=== PATIENT | female | born 1955 | race Caucasian/White ===

== ENCOUNTER → 2017-08-15 12:41 | Outpatient (CLI) | payer OTHER, SELFPAY ==
--- NOTE | 2017-08-15 | DI.RAD.S_ITS ---
PROCEDURE: XR FOOT RT MIN 3V INDICATIONS: RIGHT FOOT PAIN TECHNIQUE: 3 views of the foot were acquired. COMPARISON: [facility], , XR RT FOOT 3V, 03/15/2005, 8:11. FINDINGS: Bones: No fractures or dislocations. No suspicious bony lesions. Small plantar spur os calcis. Minimal marginal spurring first metatarsal head. Soft tissues: No tibiotalar joint effusion. Achilles tendon appears normal. IMPRESSION: Negative for fracture. Source of foot pain not seen. Dictated by: Andrea Mcgowan M.D. on 08/15/2017 at 16:00 Approved by: Andrea Mcgowan M.D. on 08/15/2017 at 16:02
== END ==
PROVIDERS: PCP Family Medicine; Visit Provider Family Medicine
DX: M79.671 Pain in right foot (principal)
CPT/HCPCS: 73630

== ENCOUNTER → 2017-09-26 15:12 | Outpatient (CLI) | payer OTHER, SELFPAY ==
--- NOTE | 2017-09-26 | DI.RAD.S_ITS ---
PROCEDURE: XR CHEST 2V INDICATIONS: COUGH TECHNIQUE: 2 views of the chest were acquired. COMPARISON: None. FINDINGS: Surgical changes and devices: None. Lungs and pleura: No pleural effusions or pneumothorax. Lungs are clear. Mild scattered atelectasis. Mediastinum: Mediastinal contours are normal. Heart size is normal. Bones and chest wall: No suspicious bony abnormalities. Soft tissues appear unremarkable. IMPRESSION: No acute disease. Dictated by: Javier Wang M.D. on 09/26/2017 at 15:45 Approved by: Javier Wang M.D. on 09/26/2017 at 15:46
== END ==
PROVIDERS: PCP Family Medicine; Visit Provider Family Medicine
DX: R05 Cough (principal)
CPT/HCPCS: 71046

== ENCOUNTER → 2018-08-22 11:12 | Outpatient (CLI) | payer OTHER, SELFPAY ==
--- NOTE | 2018-08-22 | DI.RAD.S_ITS ---
PROCEDURE: XR CERVICAL SPINE 2V OR 3V INDICATIONS: NECK PAIN TECHNIQUE: 3 view(s) of the cervical spine were acquired. COMPARISON: None. FINDINGS: Bones: No fractures or dislocations to the T1 level. The lateral masses of C1 appear intact on the odontoid view. No suspicious bony lesions. Note is made of moderately severe C5-6 and C6-7 degenerative disc disease with both anterior and posterior projecting osteophytes to the degree that spinal and foraminal stenosis at those 2 levels may be present. This is slightly greater at the C6-7 level. No anterolisthesis is associated. Soft tissues: No prevertebral soft tissue swelling. IMPRESSION: Minimal degenerative changes to the C5-6 level where moderately severe degenerative disc disease and osteophyte formation is present and this pattern is slightly more prominent at C6-C7. Spinal and foraminal stenosis likely is present at these 2 levels. Dictated by: Manjeet Reed M.D. on 08/22/2018 at 11:52 Approved by: Manjeet Reed M.D. on 08/22/2018 at 11:53
== END ==
PROVIDERS: PCP Family Medicine; Visit Provider Family Medicine
DX: M50.321 Other cervical disc degeneration at C4-C5 level (principal)
CPT/HCPCS: 72040

== ENCOUNTER 2019-03-07 07:11 | Day surgery (SDC) | payer OTHER, SELFPAY ==
[2019-03-07] VITALS (8 sets, daily range): BP systolic 105–130; BP diastolic 58–77; PULSE 68–99; RESP 12–17; TEMP 36.2–36.6; O2SAT 92–98
[2019-03-07] MEDS: SODIUM CHLORIDE 0.9% 1,000 ML 200 ML IV (07:46)
--- NOTE | 2019-03-07 08:14 | PM.HP.1 ---
History of Present Illness History of Present Illness Date Patient Seen: 03/07/19 Time Patient Seen: 08:14 Chief complaint: [id number] Narrative: Patient is here for a screening colonoscopy she has had previous colonoscopy does not remember whether she had polyps she is asymptomatic Patient History Family & Social History Social History: household members spouse Meds Home Medications and Allergies Home Medications Medication Instructions Recorded Confirmed Type ascorbic acid (vitamin C) 1,000 mg PO BID #0 01/09/17 History cholecalciferol (vitamin D3) 400 unit PO #0 01/09/17 History [Vitamin D3] coenzyme Q10 [Co Q-10] 100 mg PO #0 01/09/17 History magnesium oxide 400 mg #0 01/09/17 History atorvastatin [Lipitor] 5 mg PO BEDTIME 03/07/19 03/07/19 History lisinopril 5 mg PO DAILY 03/07/19 03/07/19 History Allergies Allergy/AdvReac Type Severity Reaction Status Date / Time Sulfa (Sulfonamide Allergy Unknown Verified 03/07/19 07:27 Antibiotics) cephalexin AdvReac Unknown Verified 03/07/19 07:27 Review of Systems Review of Systems ROS Unobtainable: All systems reviewed & are unremarkable except as noted in HPI and below Exam Vital Signs (past 8 hours): - 03/07/19 07:38 Temperature 97.6 F Pulse Rate 80 Respiratory Rate 15 Blood Pressure 130/77 Pulse Oximetry 98 Oxygen Delivery Method Room Air Narrative Exam Narrative: Patient is alert and oriented Lungs are clear with no rales or wheezes Heart regular rhythm no murmur Abdomen soft no organomegaly no tenderness Rectal be done at time of colonoscopy Assessment & Plan Assessment & Plan narrative: Patient is asymptomatic and is here for a screening colonoscopy she has had prior colonoscopies understands procedure very well has no unanswered questions.
[2019-03-07] MEDS: fentaNYL 250 MCG/5 ML INJ IV (08:20)
[2019-03-07] MEDS: MIDAZOLAM 5 MG/5 ML VIAL IV (08:21)
--- NOTE | 2019-03-07 08:35 | PM.OP.ENDO ---
Operative Date/Time/Diagnoses Date of procedure: 03/07/19 Time of procedure: 08:35 Pre-op diagnosis: Screening colonoscopy Post-op diagnosis: same Procedure & Clinicians Study performed: Colonoscopy to just beyond the splenic flexure this was normal. The procedure was aborted at that level because of patient discomfort Same procedure as scheduled: No (Partial colonoscopy to just beyond the splenic flexure) Surgeon: Juan Christianson Procedure Notes SCOAP/Timeout: This was done Procedure in detail: The patient was given a total of 5 mg of Versed and 150 micro g of fentanyl. This was given sequentially throughout the procedure. Patient had extreme discomfort even though the colonoscope was very easy to pass through the well-visualized lumen. There were no tumors no polyps no diverticuli. Because of extreme discomfort and patient motion as we traversed the splenic flexure I aborted the procedure. I do not feel it was safe to give further sedation without a well protected airway. Any further attempts at colonoscopy in this patient should be done under general anesthesia. Scope withdrawal time: 10 Sedation minutes: 20 Specimen(s): none sent Complications: none Post-procedure Recommendations: Colonscopy in 5 years Disposition: PACU
== END 2019-03-07 09:46 | disposition home or self-care (01) ==
LOC: ENDO 07:11
PROVIDERS: Surgery; PCP Family Medicine; Visit Provider Specialist
PROC: 0DJD8ZZ Inspection of Lower Intestinal Tract, Via Natural or Artificial Opening Endoscopic (ICD-10-PCS; CPT 45378; principal; 2019-03-07 08:30)
DX: Z12.11 Encounter for screening for malignant neoplasm of colon (principal); Z53.09 Procedure and treatment not carried out because of other contraindication
CPT/HCPCS: 45378; 99152; J2250; J3010

== ENCOUNTER → 2019-05-31 13:05 | Outpatient (CLI) | payer OTHER, SELFPAY | PROVIDERS: PCP Family Medicine; Referring Provider Family Medicine; Visit Provider Family Medicine | DX: M85.852 Other specified disorders of bone density and structure, left thigh (principal); Z78.0 Asymptomatic menopausal state | CPT/HCPCS: 77080 ==

== ENCOUNTER → 2019-09-03 10:37 | Outpatient (CLI) | payer OTHER, SELFPAY ==
--- NOTE | 2019-09-03 | DI.RAD.S_ITS ---
PROCEDURE: XR LUMBAR SPINE 2-3V INDICATIONS: back pain, right leg pain TECHNIQUE: 3 views of the lumbar spine were acquired. COMPARISON: None. FINDINGS: Bones: 5 [id number] vertebrae are present. There is normal bony alignment. No vertebral body compression fractures. No suspicious bony lesions. There is mild to space narrowing seen at L1-L2 and L2-L3. The disc heights otherwise appear well-preserved. Lower lumbar spine facet arthropathy is seen. Soft tissues: Overlying bowel gas pattern is normal. No suspicious soft tissue calcifications. IMPRESSION: Age-appropriate lumbar spine degenerative changes are seen. Dictated by: Erwin Dejesus M.D. on 09/03/2019 at 11:33 Approved by: Erwin Dejesus M.D. on 09/03/2019 at 11:34
== END ==
PROVIDERS: PCP Family Medicine; Referring Provider Family Medicine; Visit Provider Family Medicine
DX: M54.9 Dorsalgia, unspecified (principal); M79.604 Pain in right leg; M47.816 Spondylosis without myelopathy or radiculopathy, lumbar region
CPT/HCPCS: 72100

== ENCOUNTER → 2021-07-26 14:25 | Outpatient (CLI) | payer MEDICARE, OTHER, SELFPAY ==
--- NOTE | 2021-07-26 14:36 | DI.RAD.S_ITS ---
PROCEDURE: XR LUMBAR SPINE 2-3V INDICATIONS: BACK PAIN TECHNIQUE: 3 views of the lumbar spine were acquired. COMPARISON: [facility], CR, XR LUMBAR SPINE 2-3V, 09/03/2019, 9:45. FINDINGS: Bones: 5 [id number] vertebrae are present. There is normal bony alignment. No vertebral body compression fractures. No suspicious bony lesions. Mild endplate osteophytosis. Mild facet arthrosis at L5-S1. Soft tissues: Overlying bowel gas pattern is normal. No suspicious soft tissue calcifications. IMPRESSION: No significant interval change. Dictated by: Anil White M.D. on 07/26/2021 at 16:51 Approved by: Anil White M.D. on 07/26/2021 at 16:52
--- NOTE | 2021-07-26 14:36 | DI.RAD.S_ITS ---
PROCEDURE: XR CERVICAL SPINE 2V OR 3V INDICATIONS: BACK PAIN TECHNIQUE: 3 view(s) of the cervical spine were acquired. COMPARISON: [facility], CR, XR CERVICAL SPINE 2V OR 3V, 08/22/2018, 11:15. FINDINGS: Bones: No fractures or dislocations to the C7 level. The lateral masses of C1 appear intact on the odontoid view. Small vertebral body osteophytes. Mild intervertebral disc space height loss most pronounced at C6-C7. Overall these findings are similar to 2019. No suspicious bony lesions. Soft tissues: No prevertebral soft tissue swelling. IMPRESSION: Mild degenerative change in the cervical spine similar to 2019. Consider further evaluation with MRI. Dictated by: Calvin Barragan M.D. on 07/26/2021 at 15:51 Approved by: Calvin Barragan M.D. on 07/26/2021 at 15:52
== END ==
PROVIDERS: PCP Family Medicine; Referring Provider Family Medicine; Visit Provider Family Medicine
DX: M47.22 Other spondylosis with radiculopathy, cervical region (principal); M47.817 Spondylosis without myelopathy or radiculopathy, lumbosacral region; K22.4 Dyskinesia of esophagus; Z13.820 Encounter for screening for osteoporosis; M85.89 Other specified disorders of bone density and structure, multiple sites; Z78.0 Asymptomatic menopausal state; Z79.890 Hormone replacement therapy
CPT/HCPCS: 72040; 72100; 77080

== ENCOUNTER → 2021-08-03 08:41 | Outpatient (CLI) | payer MEDICARE, OTHER, SELFPAY ==
--- NOTE | 2021-08-03 | DI.RAD.S_ITS ---
PROCEDURE: FL UPPER GI SERIES INDICATIONS: Dyskinesia of esophagus COMPARISON: None. FINDINGS: KUB: Preprocedural scouts film demonstrates a normal bowel gas pattern. No suspicious abdominal calcifications. Visualized solid organ contours appear normal. Bony structures appear unremarkable. Esophagus: Esophageal mucosa is normal on air-contrast views. On single-contrast views, there is normal esophageal peristalsis. No strictures, extrinsic mass effects, or diverticula. No hiatal hernia or elicited gastroesophageal reflux. There is transit of a calibrated barium tablet through the esophagus which was delayed at the gastroesophageal junction but passed with additional swallows. Stomach: The stomach is normally distensible, with normal rugal fold thickness. No mucosal masses or ulcers. Pylorus and duodenal bulb appear normal in morphology. Duodenal folds are normal in thickness as well. IMPRESSION: 1. Normal upper GI. 2. Barium tablet was delayed at the gastroesophageal junction but passed spontaneously after additional swallows. Dictated by: Reginald Amato M.D. on 08/03/2021 at 9:51 Approved by: Reginald Amato M.D. on 08/03/2021 at 9:53
== END ==
PROVIDERS: PCP Family Medicine; Referring Provider Family Medicine; Visit Provider Family Medicine
DX: K22.4 Dyskinesia of esophagus (principal)
CPT/HCPCS: 74240

== ENCOUNTER → 2021-09-24 10:09 | Outpatient (CLI) | payer MEDICARE, OTHER, SELFPAY | PROVIDERS: PCP Family Medicine; Referring Provider Family Medicine; Visit Provider Family Medicine | DX: K22.4 Dyskinesia of esophagus (principal); Z53.8 Procedure and treatment not carried out for other reasons ==

== ENCOUNTER → 2024-03-18 08:36 | Outpatient (CLI) | payer MEDICARE, OTHER, SELFPAY ==
--- NOTE | 2024-03-18 | DI.CT.S_ITS ---
PROCEDURE: CT ABDOMEN PELVIS W CON INDICATIONS: Generalized abdominal pain TECHNIQUE: After the administration of intravenous contrast, axial sections acquired from the lung bases to the pubic symphysis. Coronal and sagittal reformats were performed. For radiation dose reduction, the following was used: automated exposure control, adjustment of mA and/or kV according to patient size. COMPARISON: None. FINDINGS: Image quality: Diagnostic. Lower Chest: No significant findings. ABDOMEN: Liver: No solid mass. Gallbladder: No radiopaque gallstones or wall thickening. Biliary ducts: No biliary dilation. Pancreas: No ductal dilation. Spleen: Size is within normal limits. Adrenal Glands: No adrenal nodules. Kidneys and Ureters: No hydronephrosis. No solid mass. No complex renal cystic lesion which requires follow up. Stomach and Bowel: Normal colonic caliber, without significant wall thickening. Appendectomy. Mild diverticulosis. Peritoneum: No abnormal intraperitoneal fluid. No free air. Ventral Wall: Small umbilical hernia containing a knuckle of nonobstructed small bowel wall; the sac measures 1.5 x 1.0 cm and the neck measures 1.6 cm. Abdominal Nodes: No retroperitoneal or mesenteric adenopathy by size criteria. Vessels: Aorta and inferior vena cava are normal in size. PELVIS: Pelvic Organs: Unremarkable. Bladder: No bladder wall thickening, accounting for underdistention. Pelvic Nodes: No enlarged lymph nodes. Miscellaneous: No inguinal hernias are seen. Pelvic floor weakness, with a moderate cystocele and suspected rectocele. Bones: No aggressive osseous abnormality. IMPRESSION: Small umbilical hernia containing a knuckle of nonobstructed small bowel; the sac measures 1.5 cm x 1.0 cm and the neck measures 1.6 cm. Pelvic floor weakness, with a moderate cystocele and suspected rectocele. Dictated by: Jb Cobb M.D. on 03/18/2024 at 14:22 Approved by: Jb Cobb M.D. on 03/18/2024 at 14:26
== END ==
LOC: CT 08:38
PROVIDERS: PCP Family Medicine; Referring Provider Family Medicine; Visit Provider Family Medicine
DX: R10.84 Generalized abdominal pain (principal); K42.9 Umbilical hernia without obstruction or gangrene; N81.10 Cystocele, unspecified
CPT/HCPCS: 74177; Q9967

== ENCOUNTER → 2024-06-11 12:53 | Outpatient (ROUT) | payer MEDICARE, OTHER, SELFPAY ==
[2024-06-11 14:19] LABS: COVID-19 CEPHEID 4-PLEX PCR POSITIVE (Negative); Influenza A - CEPHEID Flu A NEGATIVE (NEGATIVE); Influenza B - CEPHEID Flu B NEGATIVE (NEGATIVE); Respiratory Syncytial Virus Negative (Negative)
== END ==
PROVIDERS: PCP Family Medicine; Visit Provider Family Medicine
DX: R05.1 Acute cough (principal); R52 Pain, unspecified; R09.89 Other specified symptoms and signs involving the circulatory and respiratory systems
CPT/HCPCS: 0241U

== ENCOUNTER → 2025-02-07 12:47 | Outpatient (CLI) | payer MEDICARE, OTHER, SELFPAY ==
--- NOTE | 2025-02-07 | DI.RAD.S_ITS ---
PROCEDURE: XR CERVICAL SPINE 2V OR 3V INDICATIONS: ROUTINE TECHNIQUE: 3 view(s) of the cervical spine were acquired. COMPARISON: [facility], CR, XR CERVICAL SPINE 2V OR 3V, 07/26/2021, 14:32. [facility], CR, XR CERVICAL SPINE 2V OR 3V, 08/22/2018, 11:15. FINDINGS: Bones: No fractures or dislocations to the T7 level. The lateral masses of C1 appear intact on the odontoid view. No suspicious bony lesions. Minimally progressed moderate to severe C5-C6 and C6-C7 degenerative disc disease with posterior disc osteophyte complexes as well as uncovertebral and mild facet arthropathy. Soft tissues: No prevertebral soft tissue swelling. IMPRESSION: No displaced fracture or traumatic subluxation. Minimally progressed moderate to severe C5-C6 and C6-C7 degenerative disc disease with posterior disc osteophyte complexes as well as uncovertebral and mild facet arthropathy. Dictated by: Chandu Gill M.D. on 02/08/2025 at 21:17 Approved by: Chandu Gill M.D. on 02/08/2025 at 21:21
--- NOTE | 2025-02-07 | DI.RAD.S_ITS ---
PROCEDURE: XR LUMBAR SPINE 2-3V INDICATIONS: Pain TECHNIQUE: 3 views of the lumbar spine were acquired. COMPARISON: [facility], CR, XR LUMBAR SPINE 2-3V, 07/26/2021, 14:32. [facility], CR, XR LUMBAR SPINE 2-3V, 09/03/2019, 9:45. FINDINGS: Bones: 5 ebe-jeu-[id number] vertebrae are present. There is normal bony alignment. No vertebral body compression fractures. No suspicious bony lesions. No significant interval change in mild endplate osteophytosis, predominantly anteriorly, and moderate L5-S1 facet arthropathy. Soft tissues: Overlying bowel gas pattern is normal. No suspicious soft tissue calcifications. IMPRESSION: No significant interval change in degenerative findings in the lumbar spine. No acute bony abnormality. Dictated by: Chandu Gill M.D. on 02/09/2025 at 13:34 Approved by: Chandu Gill M.D. on 02/09/2025 at 13:36
== END ==
LOC: RAD 12:49
PROVIDERS: PCP Family Medicine; Referring Provider Family Medicine; Visit Provider Family Medicine
DX: G62.9 Polyneuropathy, unspecified (principal); M50.322 Other cervical disc degeneration at C5-C6 level; M47.812 Spondylosis without myelopathy or radiculopathy, cervical region; M47.26 Other spondylosis with radiculopathy, lumbar region
CPT/HCPCS: 72040; 72100

== ENCOUNTER → 2025-02-14 13:50 | Outpatient (CLI) | payer MEDICARE, OTHER, SELFPAY ==
--- NOTE | 2025-02-14 13:52 | DI.RAD.S_ITS ---
PROCEDURE: XR DEXA AXIAL SKELETON INDICATIONS: Bone Density Screening COMPARISON: [facility], CR, XR DEXA AXIAL SKELETON, 07/26/2021, 15:04. FINDINGS: Lumbar Spine: Bone mineral density 0.905 g/cm2, T score -1.3, compared to -1.1 demonstrating an approximate 2% bone mineral density loss. Left Femoral Neck: Bone mineral density 0.693 g/cm2, T score -1.4 compared to - 1.3 corresponding to approximate 2% bone mineral density loss. Left Hip: Bone mineral density 0.829 g/cm2, T score -0.9, compared to -1.3 demonstrating an approximate 5% bone mineral density gain.. Fracture Risk Calculation (when applicable): 10-year fracture risk of a major osteoporotic fracture 9.1 percent and of a hip fracture 1.1 percent. (T score greater or equal to -1.0 to: NORMAL) (T score from -1.1 to -2.4: OSTEOPENIA) (T score less than or equal to -2.5: OSTEOPOROSIS) IMPRESSION: Persistent mild osteopenia with slight interval progression in the lumbar spine and femoral neck. Normal bone mineral density now in the left hip. Follow-up guidelines as follows: Osteoporosis: Consider a repeat DEXA and Vertebral Fracture Assessment (VFA) exam in 2 years or sooner if medically necessary, to reassess this patient's status. Osteopenia: Consider a repeat DEXA in 2-3 years to reassess this patient's status, or if there is a new clinical indication. Normal: Consider a repeat DEXA in 5 years or sooner, or if there is a new clinical indication. All treatment decisions require clinical judgment and consideration of individual patient factors, including patient preferences, comorbidities, previous drug use, risk factors not captured in the FRAX model (e.g., frailty, falls, vitamin D deficiency, increased bone turnover, interval significant decline in bone density ) and possible under- or over-estimation of fracture risk by FRAX. In addition, the NOF Guide recommends that FDA-approved medical therapies be considered in postmenopausal women and men age >= 50 years with a: * Hip or vertebral (clinical or morphometric) fracture * T-score of <=-2.5 at the spine or hip * Ten-year fracture probability by FRAX of >= 3% for hip fracture or >=20% for major osteoporotic fracture. Dictated by: Cynthia Zuniga M.D. on 02/16/2025 at 13:37 Approved by: Cynthia Zuniga M.D. on 02/16/2025 at 13:38
== END ==
LOC: RAD 13:51
PROVIDERS: PCP Family Medicine; Referring Provider Family Medicine; Visit Provider Family Medicine
DX: M85.89 Other specified disorders of bone density and structure, multiple sites (principal)
CPT/HCPCS: 77080

== ENCOUNTER → 2025-02-21 11:33 | Outpatient (CLI) | payer MEDICARE, OTHER, SELFPAY ==
--- NOTE | 2025-02-21 11:36 | DI.MRI.S_ITS ---
PROCEDURE: MR CERVICAL SPINE WO CON INDICATIONS: neck pain TECHNIQUE: Noncontrast sagittal T1 spin echo and T2 fast spin echo, sagittal STIR, foraminal oblique sagittal T2 fast spin echo, and axial gradient echo or T2 fast spin echo through the cervical spine. COMPARISON: None. FINDINGS: Image quality: Diagnostic. Alignment and Curvature: There is normal bony alignment. Bone Marrow: Marrow demonstrates normal overall signal. Spinal Cord: Visualized spinal cord has normal size and signal. No cerebellar tonsillar herniation. Paraspinous Soft Tissues: No paravertebral masses. Prevertebral soft tissues are normal in thickness. C2-C3: Normal appearance. C3-C4: Mildly desiccated disc. No spinal canal stenosis. Mild left neural foraminal stenosis due to facet greater than uncovertebral arthrosis. No right neural foraminal stenosis. C4-C5: Mildly degenerated disc osteophyte complex. No spinal canal stenosis. Mild right neural foraminal stenosis due to uncovertebral greater than facet arthrosis. No left neural foraminal stenosis. C5-C6: Mild spinal canal stenosis due to degenerated disc osteophyte complex and minimal ligamentum flavum thickening. Moderate bilateral l, left greater than right, neural foraminal stenosis due to uncovertebral greater than facet arthrosis. C6-C7: Mild spinal canal stenosis due to degenerated disc osteophyte complex. Left moderate and right mild neural foraminal stenosis due to uncovertebral greater than facet arthrosis. C7-T1: Normal appearance. IMPRESSION: 1. Mild spinal canal stenosis at C5-6 and C6-7. 2. Multilevel neural foraminal stenosis reaches moderate bilaterally at C5-6 and on the left at C6-7. Dictated by: Hernando Rios M.D. on 02/21/2025 at 12:38 Approved by: Hernando Rios M.D. on 02/21/2025 at 12:43
== END ==
LOC: MRI 11:35
PROVIDERS: PCP Family Medicine; Referring Provider Family Medicine; Visit Provider Family Medicine
DX: M54.12 Radiculopathy, cervical region (principal); M48.02 Spinal stenosis, cervical region; M54.2 Cervicalgia
CPT/HCPCS: 72141

== ENCOUNTER → 2025-02-24 13:01 | Outpatient (CLI) | payer MEDICARE, OTHER, SELFPAY ==
--- NOTE | 2025-02-24 13:02 | DI.US.S_ITS ---
PROCEDURE: US HERNIA INDICATIONS: incisional hernia near umbilicus TECHNIQUE: Real-time focused scanning was performed of the abdomen, with image documentation. COMPARISON: None. FINDINGS/IMPRESSION: Along the superior margin of the umbilicus is a fat containing hernia with neck measuring 7 mm, contents measure 2.4 x 1.4 x 1.5 cm. Appears mostly reducible. Dictated by: Champ El M.D. on 02/24/2025 at 14:01 Approved by: Champ El M.D. on 02/24/2025 at 14:03
== END ==
LOC: US 13:02
PROVIDERS: PCP Family Medicine; Referring Provider Family Medicine; Visit Provider Surgery
DX: K43.2 Incisional hernia without obstruction or gangrene (principal)
CPT/HCPCS: 76705

== ENCOUNTER → 2025-03-03 17:43 | Outpatient (ROUT) | payer MEDICARE, OTHER, SELFPAY ==
[2025-03-03 18:50] LABS: Influenza A - CEPHEID Flu A NEGATIVE (NEGATIVE); Influenza B - CEPHEID Flu B NEGATIVE (NEGATIVE)
[2025-03-03 18:51] LABS: COVID-19 CEPHEID 4-PLEX PCR Negative (Negative)
== END ==
PROVIDERS: PCP Family Medicine; Visit Provider Family Medicine
DX: J02.9 Acute pharyngitis, unspecified (principal)
CPT/HCPCS: 87637